=== PATIENT | male | born 1955 | race Caucasian/White ===

== ENCOUNTER 2023-09-13 18:31 | Emergency (ER) | payer OTHER ==
[2023-09-13 18:53] LABS: BASOPHILS PERCENT AUTO 0.6 % (0.0-1.0); EOSINOPHILS PERCENT AUTO 4.2 % (1.0-3.0); HEMATOCRIT 43.9 % (40.0-54.0); HEMOGLOBIN 14.7 g/dL (14.0-18.0); LYMPHOCYTES PERCENT AUTO 28.7 % (20.5-50.1); MEAN CORPUSCULAR HEMOGLOBIN 31.4 pg (27.0-34.0); MEAN CORPUSCULAR HGB CONC 33.5 g/dL (33.0-35.0); MEAN CORPUSCULAR VOLUME 93.8 fL (80-100); MONOCYTES PERCENT AUTO 11.1 % (2-8); NEUTROPHILS PERCENT AUTO 55.4 % (42.2-75.2); PLATELET COUNT,PLT 171 10^3/uL (150-450); RED BLOOD CELL COUNT 4.68 10^6/uL (4.6-6.2); WHITE BLOOD CELL COUNT,WBC 8.3 10^3/uL (5.0-10.0)
[2023-09-13] MEDS: Sodium Chloride 0.9% 10 ML Syringe FLUSH PRN (18:55)
[2023-09-13] MEDS: Aspirin 81 MG Tab.Chew PO ONE (18:55)
[2023-09-13 19:09] LABS: A/G RATIO 1.1; ALANINE AMINOTRANSFERASE,ALT 68 U/L (16-63); ALBUMIN 4.2 g/dL (3.4-5.0); ALKALINE PHOSPHATASE 77 U/L (46-116); ANION GAP 15.1 mEq/L (7-13); ASPARTATE AMNIOTRANSFERASE,AST 34 U/L (15-37); BILIRUBIN TOTAL 0.3 mg/dL (0.2-1.0); BLOOD UREA NITROGEN,BUN 14 mg/dL (7-18); BUN/CREATININE RATIO 15.1 (No establ ref range); CALCIUM 9.4 mg/dL (8.5-10.1); CARBON DIOXIDE,CO2 27 mmol/L (21-32); CHLORIDE,CL 102 mmol/L (98-107); CREATININE 0.93 mg/dL (0.70-1.30); GLUCOSE RANDOM 198 mg/dL (70-99); MAGNESIUM 1.5 mg/dL (1.8-2.4); POTASSIUM,K 4.1 mmol/L (3.5-5.1); PROTEIN TOTAL,TP 8.1 g/dL (6.4-8.2); SODIUM,NA 140 mmol/L (136-145)
[2023-09-13 19:10] LABS: ESTIMATED GFR 89 mL/min (>=60)
[2023-09-13 19:11] LABS: C-REACTIVE PROTEIN < 0.50 ng/dL (<=0.50)
[2023-09-13] MEDS: Sodium Chloride 0.9% 1,000 ML IV ONE (19:30)
[2023-09-13] MEDS: Nitroglycerin 0.4 MG Tab.SL SL ONE (19:30)
[2023-09-13] MEDS: Magnesium Sulfate/Water 2 GM in Premix Bag 1 BAG IV ONE (19:52)
== END 2023-09-13 22:00 | disposition home or self-care (01) ==
LOC: DL.ED 18:31
DX: M79.632 Pain in left forearm (principal); I10 Essential (primary) hypertension; I25.2 Old myocardial infarction; E11.9 Type 2 diabetes mellitus without complications; Z95.1 Presence of aortocoronary bypass graft; Z79.82 Long term (current) use of aspirin; Z79.899 Other long term (current) drug therapy; Z79.01 Long term (current) use of anticoagulants; Z91.09 Other allergy status, other than to drugs and biological substances; Z98.890 Other specified postprocedural states
CPT/HCPCS: 36415; 71045; 80053; 83735; 84484; 85025; 86140; 93005; 96365; 96366; 99284; A9270; J3475; J7030; J3490